=== PATIENT | female | born 1995 | race Caucasian/White ===

== ENCOUNTER 2017-01-28 12:31 | Day surgery (SDC) | payer BC ==
[~2017-01-28] VITALS: Ht 154.9 cm; Wt 68.0 kg
[2017-01-28] MEDS ORDERED: KETOROLAC TROMETHAMINE 30 MG VIAL IVP ONE (14:00)
[2017-01-28] MEDS ORDERED: CEFAZOLIN 2 GM IVPB PREMIX 50 ML IV ONE (14:00)
[2017-01-28] MEDS ORDERED: SEVOFLURANE 15 MIN GAS INH ONE (14:00)
[2017-01-28] MEDS ORDERED: NS IRRIG SOLN 1000 ML IR ONE (14:00)
[2017-01-28] MEDS ORDERED: BUPIVACAINE /PF 0.25% 30 ML VIAL INJ ONE (14:00)
[2017-01-28] MEDS ORDERED: PROPOFOL 200MG/ 20ML VIAL (DIPRIVAN) IV ONE (14:00)
[2017-01-28] MEDS ORDERED: ONDANSETRON HCL 4 MG/2 ML VIAL IVP ONE (14:00)
[2017-01-28] MEDS ORDERED: fentaNYL CITRATE 250 MCG/5 ML AMP IV ONE (14:00)
[2017-01-28] MEDS ORDERED: LR 1,000 ML IV.SOLN IV ONE (14:00)
[2017-01-28] MEDS ORDERED: MIDAZOLAM HCL 5 MG/5 ML VIAL IVP ONE (14:00)
[2017-01-28] MEDS ORDERED: LR 1,000 ML IV SCH (14:27)
[2017-01-28] MEDS ORDERED: HYDROmorphone 1 MG INJ. 1 MG/ML AMPUL IVP PRN ×2 (14:30→15:45)
[2017-01-28] MEDS ORDERED: KETOROLAC TROMETHAMINE 30 MG VIAL IVP PRN (14:30)
[2017-01-28] MEDS ORDERED: HYDROmorphone 2 MG/ML VIAL IVP PRN ×2 (14:30)
[2017-01-28] MEDS ORDERED: ONDANSETRON HCL 4 MG/2 ML VIAL IVP PRN (14:30)
[2017-01-28] MEDS ORDERED: MEPERIDINE HCL/PF 25 MG/ML DISP.SYRIN IVP PRN ×2 (14:30)
[2017-01-28] MEDS ORDERED: D5/0.45 NS 1,000 ML IV SCH (15:36)
[2017-01-28] MEDS ORDERED: HYDROcodone/ACETAMIN 5-325 MG TAB (NORCO/ VICODIN) PO PRN ×2 (15:45)
[2017-01-28] MEDS ORDERED: HYDROmorphone 2 MG/ML VIAL ONE (16:12)
[2017-01-28] MEDS ORDERED: HYDROcodone/ACETAMIN 5-325 MG TAB (NORCO/ VICODIN) ONE (17:14)
[2017-01-28 18:00] VITALS: BP_SYST 131
== END 2017-01-28 17:55 | disposition home or self-care (01) ==
LOC: SDS 12:31 → SMU 12:31 → SDS 17:55
PROVIDERS: ATTEND Colon & Rectal Surgery
DX: D24.2 Benign neoplasm of left breast (principal); D24.1 Benign neoplasm of right breast
CPT/HCPCS: 19120; 88307; J0690; J1170; J1885; J2250; J2405; J2704; J3010; J3490; J7120

== ENCOUNTER 2017-01-29 23:13 | Emergency (ER) | payer BC ==
[~2017-01-29] VITALS: Ht 154.9 cm; Wt 65.8 kg
[2017-01-29 23:42] VITALS: BP_SYST 128
--- NOTE | 2017-01-30 00:02 | NUR ---
Patient to ER bed 7 to gown for evaluation. Side rails up. Report given to MANJU CASTANEDA.
--- NOTE | 2017-01-30 00:05 | NUR ---
ED MD Rodriguez at bedside for medical evaluation.
--- NOTE | 2017-01-30 00:10 | NUR ---
Patient arrived to ED a/o x 4 with c/o pain to the breasts and bilateral upper arms. Patient recieved bilateral axilarry accessory breast tissue removal x 1 day ago. Patient presents with redness and tenderness bilaterally to the upper arms. Surgical wounds noted to axillary, dressings intact and non saturated. Bilateral HORACE drains in place with scant drainage. Patient reports 8/10 pain. Denies fever. Mother at bedside. Will contiue to monitor.
[2017-01-30] MEDS ORDERED: NACL 0.9% 1,000 ML IV ONE (00:24)
[2017-01-30] MEDS ORDERED: HYDROmorphone 1 MG INJ. 1 MG/ML AMPUL IVP ONE (00:30)
[2017-01-30] MEDS ORDERED: ONDANSETRON HCL 4 MG/2 ML VIAL IVP ONE (00:30)
[2017-01-30] MEDS ORDERED: methylPREDNISolone SOD SUCC/PF 62.5 MG/ML VIAL IVP ONE (00:30)
[2017-01-30] MEDS ORDERED: DIPHENHYDRAMINE INJ 50 MG/ML VIAL IVP ONE (00:30)
--- NOTE | 2017-01-30 00:40 | NUR ---
22 gauge angiocath placed to left hand. Use of asceptic technique. Opsite placed over site. Blood return noted. Blood for lab drawn from site. Flushed with 10 cc of normal saline. No evidence of infiltration noted. Patient tolerated well.
[2017-01-30 01:08] LABS: BASOPHILS # (AUTO) 0.1 K/uL (0.0-0.2); BASOPHILS % (AUTO) 0.7 % (0.0-2.0); EOSINOPHILS % (AUTO) 0.1 % (0.0-4.0); HEMATOCRIT 38.8 % (36-48); LYMPHOCYTES # (AUTO) 4.9 K/uL (1.0-5.5); LYMPHOCYTES % (AUTO) 28.7 % (20.5-51.5); MEAN CORPUSCULAR HEMOGLOBIN 28 pg (27-31); MEAN CORPUSCULAR HGB CONC 34 % (32-36); MEAN CORPUSCULAR VOLUME 83 fL (79.0-98.0); MONOCYTES # (AUTO) 0.8 K/uL (0.0-1.0); MONOCYTES % (AUTO) 4.7 % (1.7-9.3); NEUTROPHILS # (AUTO) 11.2 K/uL (1.8-7.7); NEUTROPHILS % (AUTO) 65.8 % (40.0-70.0); PLATELET COUNT (AUTO) 290 K/uL (130-430); RED BLOOD CELL COUNT(AUTO) 4.66 MIL/uL (4.2-6.2); RED CELL DISTRIBUTION WIDTH 12.8 % (9.0-15.0)
[2017-01-30 01:11] LABS: BILIRUBIN,URINE NEGATIVE (NEGATIVE); BLOOD, URINE NEGATIVE (NEGATIVE); CLARITY/URINE CLEAR (CLEAR); COLOR,URINE YELLOW (YELLOW); GLUCOSE,URINE NEGATIVE (NEGATIVE); KETONES,URINE NEGATIVE (NEGATIVE); LEUKOCYTE ESTERASE ,URINE NEGATIVE (NEGATIVE); NITRITE, URINE NEGATIVE (NEGATIVE); PROTEIN URINE NEGATIVE (NEGATIVE); UROBILINOGEN,URINE 0.2 (0.2-1.0)
--- NOTE | 2017-01-30 01:20 | NUR ---
Medicated per MD orders. IVF infusing with no s/s of infiltration at this time. Will continue to monitor.
[2017-01-30 01:24] LABS: CALCIUM 8.2 mg/dL (8.4-11.0); CREATININE 0.42 mg/dL (0.55-1.30); POTASSIUM 3.7 mmol/L (3.5-5.1)
[2017-01-30 01:29] LABS: ALBUMIN 3.4 g/dL (3.4-4.8); TOTAL BILIRUBIN 0.1 mg/dL (0.0-1.0); TOTAL PROTEIN, SERUM 7.5 g/dL (6.4-8.3)
--- NOTE | 2017-01-30 01:30 | NUR ---
Patient reports pain 2/10 30 minutes after administration of dilaudid. No adverse reactions noted. Will continue to monitor.
[2017-01-30] MEDS ORDERED: cefTRIAXone 1 GM in D5W 50 ML IV ONE (01:45)
--- NOTE | 2017-01-30 01:50 | NUR ---
ED MD Rodriguez at bedside for reassessment.
[2017-01-30] MEDS ORDERED: cefTRIAXone 1 GM VIAL ONE (01:51)
[2017-01-30 02:00] VITALS: BP_SYST 133
--- NOTE | 2017-01-30 02:00 | NUR ---
Patient given written and verbal discharge instructions and verbalizes understanding. ER MD discussed with patient the results and treatment provided. Patient in stable condition. ID arm band removed. IV catheter removed intact and dressing applied, no active bleeding. Rx of tramadol and atarax given. Patient educated on pain management and to follow up with PMD. Pain Scale 2/10 tolerable for patient. Opportunity for questions provided and answered.
== END 2017-01-30 02:00 | disposition home or self-care (01) ==
LOC: SED 23:13
DX: L29.9 Pruritus, unspecified (principal); R06.02 Shortness of breath; R13.10 Dysphagia, unspecified; T40.2X5A Adverse effect of other opioids, initial encounter; Y92.89 Other specified places as the place of occurrence of the external cause
CPT/HCPCS: 36415; 80053; 81003; 85025; 96365; 96375; 99284; J0696; J1170; J1200; J2405; J2930; J7030